=== PATIENT | female | born 1965 | race Caucasian/White ===

== ENCOUNTER → 2017-03-11 | Outpatient (CLI) | payer BC | END | disposition home or self-care (01) | LOC: C.PAPS 11:16 | PROVIDERS: ATTEND Obstetrics & Gynecology | DX: Z01.419 Encounter for gynecological examination (general) (routine) without abnormal findings (principal) ==

== ENCOUNTER → 2017-03-14 | Outpatient (CLI) | payer BC ==
--- NOTE | 2017-03-14 07:53 | MAMMOGRAPHY REPORT ---
BILATERAL DIGITAL SCREENING MAMMOGRAM TOMOSYNTHESIS WITH CAD: 03/14/2017 TECHNIQUE: Breast tomosynthesis in addition to standard 2D mammography was performed. Current study was also evaluated with a Computer Aided Detection (CAD) system. COMPARISON: Comparison is made to exams dated: 01/19/2016 mammogram, 01/07/2015 mammogram, 01/06/2014 mammogram, 01/05/2013 mammogram, 12/31/2011 mammogram, and 11/28/2010 ultrasound - [facility]. BREAST COMPOSITION: The tissue of both breasts is heterogeneously dense, which may obscure small mas ses. FINDINGS: There is an oval partially circumscribed and partially obscured 17 mm mass within the right upper outer quadrant, for which ultrasound and possible additional spot compression views are recomm ended for further evaluation. The remainder of both breasts are stable compared to prior exams, without suspicious masses, calcific ations, or areas of architectural distortion noted. IMPRESSION: ACR BI-RADS CATEGORY 0: INCOMPLETE EVALUATION: NEED ADDITIONAL IMAGING EVALUATION Right breast mass, for which additional imaging evaluation is recommended. The patient will be guzman d to schedule an appointment. Approximately 10% of breast cancers are not detected with mammography. A negative mammographic report should not delay biopsy if a clinically suggestive mass is present. Renetta Chambers M.D. 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
== END | disposition home or self-care (01) ==
LOC: C.MAMM 07:20
PROVIDERS: ATTEND Obstetrics & Gynecology
DX: Z12.31 Encounter for screening mammogram for malignant neoplasm of breast (principal); N63.11 Unspecified lump in the right breast, upper outer quadrant

== ENCOUNTER → 2017-03-21 | Outpatient (CLI) | payer BC ==
--- NOTE | 2017-03-21 14:27 | MAMMOGRAPHY REPORT ---
ULTRASOUND OF RIGHT BREAST: 03/21/2017 CLINICAL HISTORY: Callback from screening mammogram for partially circumscribed mass in the right upp er outer quadrant. COMPARISON: Comparison is made to exams dated: 03/14/2017 mammogram, 01/19/2016 mammogram, 01/07/2015 mammogram, 01/06/2014 mammogram, 01/05/2013 mammogram, and 12/31/2011 mammogram - [facility]. TECHNIQUE: Real-time targeted ultrasound of the right breast was performed. FINDINGS: Real-time, high-resolution targeted ultrasound was performed of the area of the mammograph ic mass seen on the recent screening mammogram. In the right breast at 9:00, approximately 8 cm from the nipple, there is an oval parallel circumscribed anechoic mass which measures 16 x 5 x 12 mm. Th is corresponds with the mass seen on the recent screening mammogram and is consistent with a benign s imple cyst. IMPRESSION: ACR BI-RADS CATEGORY 2: BENIGN Benign 16 mm simple cyst in the right 9:00 breast on ultrasound, which corresponds with the mammograp hic mass. There is no sonographic evidence of malignancy. A 1 year screening mammogram is recommend ed. The patient was verbally notified of the results. Renetta Chambers M.D. 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
== END | disposition home or self-care (01) ==
LOC: C.MAMM 08:18
PROVIDERS: ATTEND Obstetrics & Gynecology
DX: N60.01 Solitary cyst of right breast (principal)